=== PATIENT | female | born 1955 | race Caucasian/White ===

== ENCOUNTER 2024-01-20 10:04 | Outpatient (REF) | payer MEDICARE, SELFPAY ==
[2024-01-22 22:18] LABS: TS Negative Control Passed; TS Panel A 2; TS Panel B 2; TS Positive Control Passed; TSpotTB Negative (Negative)
== END 2024-01-20 10:05 | disposition home or self-care (01) ==
LOC: HO.10HDL 10:04
PROVIDERS: Visit Provider Internal Medicine
DX: Z11.1 Encounter for screening for respiratory tuberculosis (principal); E89.0 Postprocedural hypothyroidism; F32.5 Major depressive disorder, single episode, in full remission
CPT/HCPCS: 36415; 86481